=== PATIENT | male | born 1930 | race Caucasian/White ===

== ENCOUNTER 2016-07-05 16:14 | Emergency (ER) | payer MEDICARE, OTHER ==
[~2016-07-05 16:14] MED LIST: ALPHAGAN P0.1 % OPH; ASAB PO; AZOPT OPH; BEN25 PO; CARDU2 PO; CARDU4 PO; CENTRUM PO; COREG12 PO; COUMADIN4 MG PO; DIURETIC RX PO; DORZOLAMIDE2 % OP; L20 PO; LEVOTHROID50 MCG PO; LOP25 PO; LUMIGAN OPH; LUMIGAN OPTH OPH; LUMIGAN2.5 ML OPH; MEDROL32 MG PO; MULTIPLE VIT PO; NAP500 PO; NORV10 PO; PEP20 PO; PRILO PO; PRILOSEC OTC20 MG PO; PRIN20 PO; PROAIR HFA INH; REFRES1 OPH; SPIRIVA INH; SYMBICORT 80/4.1 INH INH; SYN075 PO; SYNTHROID PO; TRUSOPT2 % OPH; VENTOLIN HFA INH; [UNRECOGNIZED DRUG - OTHER] OPH; [UNRECOGNIZED DRUG - REMARK] OPH
[2016-07-05 17:46] LABS: BASOPHILS 0.2 %; BASOPHILS ABSOLUTE 0.02 10/3/uL (0.0-0.16); EOSINOPHILS 4.5 %; EOSINOPHILS ABSOLUTE 0.44 10/3/uL (0.0-0.53); ER CBC TAT 0 Hrs 05 Mins; HEMATOCRIT 42.3 % (40.0-51.0); HEMOGLOBIN 13.2 g/dL (13.6-17.8); IMMATURE GRANULOCYTES 0.1 %; IMMATURE GRANULOCYTES ABSOLUTE 0.01 10/3/uL (0.0-0.11); LYMPHOCYTES 12.4 %; LYMPHOCYTES ABSOLUTE 1.21 10/3/uL (0.67-4.30); MANUAL DIFF NO %; MEAN CORPUS HGB CONC 31.2 g/dL (32.0-36.0); MEAN CORPUSCULAR HEMOGLOB 26.2 pg (26.0-34.0); MEAN CORPUSCULAR VOLUME 84.1 fL (80-100); MEAN PLATELET VOLUME 10.3 fL (9.2-13.0); MONOCYTES 6.3 %; MONOCYTES ABSOLUTE 0.61 10/3/uL (0.21-1.20); NEUTROPHILS 76.5 %; NEUTROPHILS ABSOLUTE 7.43 10/3/uL (2.02-8.40); PLATELET COUNT 242 10/3/uL (150-400); RBC DISTRIBUTION WIDTH 16.8 % (12.0-16.0); RED CELL COUNT 5.03 10/6/uL (4.7-6.1); WHITE BLOOD CELLS 9.7 10/3/uL (4.5-10.5)
[2016-07-05 18:04] LABS: A/G RATIO 1.3 (0.7-1.9); ALBUMIN 4.4 G/DL (3.5-5.0); BUN (BLOOD UREA NITROGEN) 23 MG/DL (6-23); CALCIUM, SERUM 9.2 MG/DL (8.5-10.4); CHLORIDE, SERUM 105 MMOL/L (96-112); CO2 (CARBON DIOXIDE) 24 MMOL/L (24-34); CREATININE 1.36 MG/DL (0.70-1.30); GFR AFRICAN AMERICAN 55 ML/MIN (>=60); GFR NON AFRICAN AMERICAN 47 ML/MIN (>=60); GLOBULIN 3.5 G/DL (2.5-4.1); GLUCOSE, SERUM 97 MG/DL (60-99); POTASSIUM, SERUM 4.2 MMOL/L (3.5-5.3); SGPT(ALT) 17 U/L (5-65); SODIUM, SERUM 140 MMOL/L (135-148); TOTAL BILIRUBIN 0.6 MG/DL (0-1.2); TOTAL PROTEIN 7.9 G/DL (6.0-8.5)
[2016-07-05 18:05] LABS: ALKALINE PHOSPHATASE 73 U/L (45-117)
[2016-07-05 18:06] LABS: SGOT(AST) 19 U/L (5-40)
[2016-07-05 18:07] LABS: ASCORBIC ACID (UR NOT ORDER) 40 (NEG); BILIRUBIN, URINE NEGATIVE (NEG); ER URINALYSIS TAT 0 Hrs 26 Mins; KETONE, URINE TRACE MG/DL (NEG); LEUKOCYTE ESTERASE(NOT OR NEG (NEG); NITRITE (URINE) NEG (NEG); WBC (NOT ORDERED) (RFLEX) > 182 (0-5)
[2016-07-05 19:47] LABS: PROTIME (NOT ORD) 22.4 SEC (12.0-14.5)
[2016-07-06] MEDS ORDERED: SYMBICORT 80/4.1 INH INH (18:02)
[2016-07-06] MEDS ORDERED: ALPHAGAN P0.1 % OPH ×2 (18:04→18:05)
[2016-07-06] MEDS ORDERED: PRESERVISION A1 EAC1 PO (18:05)
[2016-07-06] MEDS ORDERED: ZANTAC150 MG PO (18:06)
[2016-07-06] MEDS ORDERED: ENDOCET1 TAB PO (18:07)
== END 2016-07-05 21:39 | disposition home or self-care (01) ==
LOC: ER 16:14
PROVIDERS: Hospitalist; Nurse Practitioner
DX: R31.9 Hematuria, unspecified (principal); R30.0 Dysuria; N32.89 Other specified disorders of bladder; I48.91 Unspecified atrial fibrillation; I12.9 Hypertensive chronic kidney disease with stage 1 through stage 4 chronic kidney disease, or unspecified chronic kidney disease; N18.9 Chronic kidney disease, unspecified; K21.9 Gastro-esophageal reflux disease without esophagitis; D64.9 Anemia, unspecified; Z91.041 Radiographic dye allergy status; Z85.51 Personal history of malignant neoplasm of bladder; Z79.01 Long term (current) use of anticoagulants; Z79.899 Other long term (current) drug therapy
CPT/HCPCS: 74176; 80053; 81001; 83690; 83880; 85025; 85610; 85730; 87086; 99284; A9270-GY

== ENCOUNTER 2016-07-09 07:52 | Day surgery (SDC) | payer MEDICARE, OTHER ==
--- NOTE | ~2016-07-09 | OP ---
Record Of Operation [facility] [address] [place] [place]. 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 POSTOPERATIVE DIAGNOSIS: 1. Large bladder clot. 2. Proximal urethral narrowing. 3. Recurrent bladder tumor right lateral wall. PROCEDURE: Cystoscopy, urethral dilation, right retrograde pyelogram, TURBT (greater than 5 cm lesion), examination under anesthesia. SURGEON: Gian Roman M.D. ANESTHESIA: General endotracheal. COMPLICATIONS: Extensive resection. DRAINS: A 22-Ivorian two-way Pritchett catheter. BRIEF HISTORY: Mr. Max is an 85-year-old white male, seen last week with gross hematuria and suprapubic pain. CT showed a soft tissue mass in the right bladder wall. He has a history of transitional cell carcinoma in 2013 but was noncompliant and suggested followup. He is here for the above procedure. The risks of bleeding, infection, anesthesia, injury to adjacent organs, inability to eradicate disease, need for further treatment, etc. were discussed. There were no unanswered questions. DESCRIPTION OF PROCEDURE: Under excellent general anesthesia, the patient was prepped and draped in a standard lithotomy position. Digital exam revealed a 2+ symmetric prostate gland with some firmness apically. There were no pelvic masses noted. Cystoscopy was performed with a 30-degree lens, it showed a normal anterior urethra. The posterior urethra showed some narrowing in the proximal bulb. He was subsequently dilated with Ravalli sounds from 20-Ivorian to 28-Ivorian. I inspected the bladder after the right orifice appeared normal. There was a large blood clot and a large tumor on the right lateral wall. An 8-Ivorian cone-tipped catheter was used to perform a right retrograde pyelogram which showed a normal caliber ureter without filling defect or obstruction. I then inserted a 26- Ivorian Storz resectoscope and the clot was freely floating but fairly dense and I was unable to remove it with the Ellik evacuator until I had partially resected it as it floated in the bladder. This was sent as the first specimen. The tumor was much bigger than advertised, at least 5 or 6 cm extending from lateral to the right orifice up the right lateral wall of the bladder. It was papillary and low grade in its appearance. I resected for over an hour and controlled the bleeding. I resected down to the base of the bladder wall and planned to review his pathology before deciding on the next treatment. It was frankly too much tumor to resect today and I suspect that he will need a repeat resection after we review his Record Of Operation [address] [place]. [address] NAME: MORGAN MAX : 32 STATUS : [place] [facility] [place] PAT#: [id number] AGE: 85 ADM/REG DATE : 07/09/16 MR#: [id number] REPORT SERV DATE: 07/09/16 DICTATED BY: Gian ROMAN DATE: 07/09/16 REPORT STATUS : Draft TRANSCRIBED BY: DEEPTHI DATE: 07/09/16 pathology. I inserted a 22-Ivorian two-way Pritchett catheter and a B and O suppository and put 10 mL of sterile water in the balloon. I plan to discharge Mr. Max as an outpatient with the following instructions: DISCHARGE INSTRUCTIONS: 1. Resume Coumadin in 72 hours. 2. Remove the catheter in 48 hours. He has done this before at home. 3. Pyridium 200 mg one p.o. t.i.d. p.r.n. bladder pain #15. 4. Follow up my office in one week to review pathology and plan the next step. MICHAEL/HERNANL Gian Roman M.D. / [id number] CC: Tremaine Domingo M.D.
[~2016-07-09 07:52] MED LIST changes: +ENDOCET1 TAB PO; +PRESERVISION A1 EAC1 PO; +ZANTAC150 MG PO
[2016-07-09 08:35] LABS: INTERNATIONAL NORMAL RATI 1.3 UNITS (-); PROTIME (NOT ORD) 16.2 SEC (12.0-14.5)
== END 2016-07-09 16:47 | disposition home or self-care (01) ==
LOC: SDC 07:52
PROC: 0T7D8ZZ Dilation of Urethra, Via Natural or Artificial Opening Endoscopic (ICD-10-PCS; 2016-07-09)
PROC: 0TBB8ZZ Excision of Bladder, Via Natural or Artificial Opening Endoscopic (ICD-10-PCS; principal; 2016-07-09 09:45)
PROC: BT1DZZZ Fluoroscopy of Right Kidney, Ureter and Bladder (ICD-10-PCS; 2016-07-09 09:45)
DX: C67.2 Malignant neoplasm of lateral wall of bladder (principal); N32.89 Other specified disorders of bladder; Z85.51 Personal history of malignant neoplasm of bladder; I10 Essential (primary) hypertension; I48.91 Unspecified atrial fibrillation; E03.9 Hypothyroidism, unspecified; J44.9 Chronic obstructive pulmonary disease, unspecified; M19.90 Unspecified osteoarthritis, unspecified site; K21.9 Gastro-esophageal reflux disease without esophagitis; K44.9 Diaphragmatic hernia without obstruction or gangrene; H40.9 Unspecified glaucoma; H91.91 Unspecified hearing loss, right ear; Z88.8 Allergy status to other drugs, medicaments and biological substances; Z91.041 Radiographic dye allergy status; Z79.01 Long term (current) use of anticoagulants; Z79.899 Other long term (current) drug therapy; Z87.891 Personal history of nicotine dependence; Z97.4 Presence of external hearing-aid; Z97.2 Presence of dental prosthetic device (complete) (partial); Z90.89 Acquired absence of other organs; Z98.41 Cataract extraction status, right eye; Z98.42 Cataract extraction status, left eye; Z96.1 Presence of intraocular lens; Z90.49 Acquired absence of other specified parts of digestive tract; Z98.890 Other specified postprocedural states
CPT/HCPCS: 74420; 85610; 88304; 88305; 88307; 93005; A9270-GY; C1758; C1769; J2270; J2370; J2405; J2710; J3010; Q9967

== ENCOUNTER 2016-07-23 07:39 | Day surgery (SDC) | payer MEDICARE, OTHER ==
[2016-07-19 14:56] LABS: HEMATOCRIT 38.9 % (40.0-51.0); HEMOGLOBIN 11.9 g/dL (13.6-17.8)
[2016-07-19 15:14] LABS: BUN (BLOOD UREA NITROGEN) 21 MG/DL (6-23); CALCIUM, SERUM 9.1 MG/DL (8.5-10.4); CHLORIDE, SERUM 104 MMOL/L (96-112); CREATININE 1.22 MG/DL (0.70-1.30); GFR AFRICAN AMERICAN 63 ML/MIN (>=60); GFR NON AFRICAN AMERICAN 54 ML/MIN (>=60); GLUCOSE, SERUM 89 MG/DL (60-99); SODIUM, SERUM 142 MMOL/L (135-148)
[2016-07-19 15:15] LABS: CO2 (CARBON DIOXIDE) 30 MMOL/L (24-34)
--- NOTE | ~2016-07-23 | OP ---
Record Of Operation [facility] [address] [place]. [address] NAME: MORGAN MAX : 32 STATUS : REG [facility] [place] PAT#: [id number] AGE: 85 ADM/REG DATE : 07/23/16 MR#: [id number] REPORT SERV DATE: 07/23/16 DICTATED BY: Gian ROMAN DATE: 07/23/16 REPORT STATUS : Draft TRANSCRIBED BY: MODL DATE: 07/23/16 DATE OF PROCEDURE: 07/23/2016 PREOPERATIVE DIAGNOSIS: Large right bladder wall tumor. POSTOPERATIVE DIAGNOSIS: Large right bladder wall tumor. PROCEDURE: Cystoscopy, transurethral resection of bladder tumor (greater than 5 cm). ANESTHESIA: General endotracheal. COMPLICATIONS: None. DRAINS: 22-Namibian 2-way Pritchett catheter. BRIEF HISTORY: Mr. Max is an 85-year-old white male with a history of transitional cell carcinoma treated with TURBT in 2012 followed by induction BCG. He was noncompliant in followup. He returned recently with gross hematuria and a large tumor. He underwent cystourethral dilation, right retrograde pyelogram, and TURBT on 07/09/2016. He had an incomplete resection because I felt that it had taken quite some time to get rid of that large tumor, and I felt that if he had invasive disease, then he would need a cystectomy. 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 The risks of bleeding, infection, anesthesia, injury to adjacent organs, need for adjuvant therapy including postop mitomycin were all discussed. There were no unanswered questions. DESCRIPTION OF PROCEDURE: Under excellent general anesthesia, the patient was prepped and draped in standard lithotomy position. Cystoscopy was performed with a 30-degree lens, revealed some narrowing in the proximal urethra. He had previously been dilated and he also had some narrowing distally as well. The prostate was partially obstructing with lateral lobes. Inspection of the bladder revealed normal orifices with large papillary-appearing tumor on the right lateral wall extending from close to the bladder neck posteriorly and up the bladder wall not quite to the midline. I inserted a 26-Namibian Storz resectoscope and began resection. Part of the problem with this tumor is it is such a fine papillary tumor that resection was difficult. Also, the angle made it extremely difficult. I had to turn the resectoscope loop upside down for parts and also was able to steady the loop and perform some of the most difficult resection left-handed that worked quite well and actually it was a technique I have never used before. At any rate, this tumor was probably 5 or 6 x 4 cm in total area. I resected all of the papillary disease and sent that as a right bladder wall tumor. I then resected the tumor base and sent that as a second specimen. There was a central sessile-appearing portion of this tumor which I sent. I feel certain that it should contain muscle and may harbor different pathology in specimen 2. At any rate, bleeding was well controlled. There was no visible residual tumor and I terminated the case. I placed a 22-Namibian 2-way Pritchett catheter with 10 mL of sterile water in the balloon. I decided not to give postoperative mitomycin due to this extensive resection. There were areas with cellules that were resected and appeared to be a fairly deep resection in parts. There was Record Of Operation [address] [address] NAME: MORGAN MAX : 32 STATUS : REG [facility] [place] PAT#: [id number] AGE: 85 ADM/REG DATE : 07/23/16 MR#: [id number] REPORT SERV DATE: 07/23/16 DICTATED BY: Gian ROMAN DATE: 07/23/16 REPORT STATUS : Draft TRANSCRIBED BY: DEEPTHI DATE: 07/23/16 no perforation, but I think that mitomycin might be poorly tolerated in this scenario. I plan to discharge Mr. Max as an outpatient with the following instructions. DISCHARGE INSTRUCTIONS: 1. Home today with 22-Namibian 2-way Pritchett catheter. He could remove it in two days. 2. Pyridium 200 mg one p.o. t.i.d. p.r.n. bladder pain, #15 with two refills. 3. Follow up in my office next week to review pathology. At a minimum, he will need repeat induction BCG with maintenance as appropriate. MICHAEL/DEEPTHI Gian Roman M.D. / [id number] CC: Tremaine Domingo R. HENRY
[2016-07-23 08:53] LABS: INTERNATIONAL NORMAL RATI 1.1 UNITS (-); PROTIME (NOT ORD) 14.1 SEC (12.0-14.5)
== END 2016-07-23 17:28 | disposition home or self-care (01) ==
LOC: SDC 07:39
PROC: 0TBB8ZZ Excision of Bladder, Via Natural or Artificial Opening Endoscopic (ICD-10-PCS; principal; 2016-07-23 09:15)
DX: C67.9 Malignant neoplasm of bladder, unspecified (principal); I10 Essential (primary) hypertension; I48.91 Unspecified atrial fibrillation; J44.9 Chronic obstructive pulmonary disease, unspecified; J21.9 Acute bronchiolitis, unspecified; K21.9 Gastro-esophageal reflux disease without esophagitis; K44.9 Diaphragmatic hernia without obstruction or gangrene; E03.9 Hypothyroidism, unspecified; H40.9 Unspecified glaucoma; H91.91 Unspecified hearing loss, right ear; Z91.041 Radiographic dye allergy status; Z88.8 Allergy status to other drugs, medicaments and biological substances; Z79.01 Long term (current) use of anticoagulants; Z79.899 Other long term (current) drug therapy; Z87.891 Personal history of nicotine dependence; Z90.89 Acquired absence of other organs; Z96.1 Presence of intraocular lens; Z98.41 Cataract extraction status, right eye; Z98.42 Cataract extraction status, left eye; M19.90 Unspecified osteoarthritis, unspecified site; Z90.49 Acquired absence of other specified parts of digestive tract; Z98.890 Other specified postprocedural states
CPT/HCPCS: 80048; 85014; 85018; 85610; 88307; A9270-GY; J2250; J2270; J2370; J2405; J2710; J3010; J9280